=== PATIENT | female | born 1940 ===

== ENCOUNTER 2020-05-30 07:46 | Day surgery (SDC) | payer OTHER ==
[~2020-05-30 07:46] MED LIST: CALTRATE PO; CENTRUM ADULTS1 EACH PO; GLIPIZ PO; LOSARTA PO; OMEGA 3 1,0001 EACH PO; ROSUVASTA PO
[2020-05-30] MEDS ORDERED: PERCOCET 5-3251 EACH PO (13:47)
== END 2020-05-30 20:40 | disposition home or self-care (01) ==
LOC: CIR.AMB 07:46 → EDSTATUS 08:45 → CIR.AMB 08:45 → SURH 08:45 → CIR.AMB 09:40
PROVIDERS: ATTEND Surgery
DX: K64.8 Other hemorrhoids (principal); K64.4 Residual hemorrhoidal skin tags; Z20.822 Contact with and (suspected) exposure to COVID-19